=== PATIENT | female | born 1995 | race Two or more races ===

== ENCOUNTER 2023-11-11 09:39 | Outpatient (CLI) | payer BC | END 2023-11-11 09:40 | disposition home or self-care (01) | LOC: BICULT 09:39 | PROVIDERS: ATTEND Internal Medicine Nephrology | DX: I12.9 Hypertensive chronic kidney disease with stage 1 through stage 4 chronic kidney disease, or unspecified chronic kidney disease (principal); N18.2 Chronic kidney disease, stage 2 (mild); N28.89 Other specified disorders of kidney and ureter | CPT/HCPCS: 76770; 93975 ==